=== PATIENT | male | born 1955 | race Caucasian/White ===

== ENCOUNTER → 2017-06-30 | Outpatient (CLI) | payer BC | END | disposition home or self-care (01) | LOC: YCFC.O 08:58 | PROVIDERS: ATTEND Nurse Practitioner Family | DX: R97.20 Elevated prostate specific antigen [PSA] (principal); I10 Essential (primary) hypertension; Z13.220 Encounter for screening for lipoid disorders ==

== ENCOUNTER → 2019-08-10 | Outpatient (CLI) | payer BC ==
--- NOTE | 2019-08-10 14:54 | MRI ---
EXAM DESCRIPTION: Brain w/wo contrast and brainstem/IACs with and without contrast: Magnetic Resonance Imaging. CLINICAL HISTORY: MENIERE'S DISEASE RIGHT EAR, SENSORINEURAL HEARING LOSS COMPARISON: None. TECHNIQUE: Diffusion axial imaging of the brain. Multiplanar high-field unit, multiple conventional sequences through the IACs, and the brain, before and after 5 kg/mL gadolinium IV contrast. No adverse reactions. FINDINGS: Normal signal in the IACs with no abnormal enhancement and no mass. No fluid in the mastoid air cells. Normal contour of the cerebellopontine angles with no mass, normal enhancement. Normal flow signal void in the major vessels of the [place] and venous sinuses. Right vertebral dominant. Paranasal sinuses are unremarkable.. Pituitary gland occupies all of the sella compartment. Bony calvarium is intact. Base of the cerebellar tonsils is at the level of the foramen magnum. At least 3 foci of hyperintense FLAIR and T2-weighted signal in the subcortical white matter of the left frontal lobe at and above the level of the lateral ventricle. No hemorrhage, no mass effect, and no enhancement. Normal signal in the bilateral basal ganglia. Normal signal in the brainstem and cerebellar hemispheres. . Concordance of the diffusion and non-diffusion sequences with no evidence of acute or subacute infarction. Cortical sulci, ventricles, and other CSF spaces, and the subdural spaces are normally configured for patients age..No effacement or displacement. No midline shift. No extra-axial hemorrhage. IMPRESSION: 1. Normal appearance of the IACs and brainstem without and with gadolinium IV contrast with no mass effect, no hemorrhage, and no abnormal contrast enhancement. Normal diffusion noncontrast MRI as well. 2. Small follicle lesions in the subcortical white matter of the left frontal lobe which could be related to aging or cerebral microvascular disease or migraine headaches. No hemorrhage, no mass effect, no diffusion restriction. Electronically signed by: Ben Roberts MD 08/10/2019 2:53 PM HYDROGRAPHIC ENGINEER
== END ==
LOC: MRI 08:52
PROVIDERS: ATTEND Student in an Organized Health Care Education/Training Program
DX: H81.01 Meniere's disease, right ear (principal); H90.A22 Sensorineural hearing loss, unilateral, left ear, with restricted hearing on the contralateral side; R90.82 White matter disease, unspecified

== ENCOUNTER 2020-08-19 03:41 | Emergency (ER) | payer SELFPAY ==
[2020-08-19] MEDS ORDERED: EPINEPHrine HCL AMP 1 MG/ML AMP SUBCU ONE ×2 (03:55→05:00)
[2020-08-19] MEDS ORDERED: FAMOTIDINE IV PREMIX 20 MG in PREMIX BAG 1 BAG IVPB ONE (03:55)
[2020-08-19] MEDS ORDERED: SODIUM CHLORIDE 0.9% (FLUSH) 10 ML SYG IV PRN (03:55)
[2020-08-19 04:09] VITALS: TEMP 98.2
--- NOTE | 2020-08-19 04:22 | ED.PDOC ---
History of Present Illness - General Chief Complaint: Allergic Reaction Stated Complaint: allergic reaction Time Seen by Provider: 08/19/20 03:55 Source: patient, RN notes reviewed, Vital Signs reviewed, family - daughter Exam Limitations: no limitations - History of Present Illness Initial Comments: Patient is a 65-year-old white male who presents via EMS after having an acute allergic reaction to amoxicillin. A couple of days ago, patient thought he was getting sinus infection and took an amoxicillin tablet he had. He had a mild reaction with associated swelling of his lip and tongue and itching. He thought he had eaten something it caused an allergic reaction and did not make the connection between the reaction and amoxicillin. Of note patient takes lisinopril also. This evening patient thought again he was getting a sinus infection and so took another amoxicillin tablet and within 20 minutes he had difficulty breathing swollen lips and swollen tongue and called EMS. Prior to EMSs arrival the patient took 50 mg of Benadryl p.o. EMS then provided an additional 50 mg of Benadryl IM, epinephrine subcu and had Solu-Medrol 125 mg IV. On arrival here patient states that he is feeling better. Per EMS his lip swelling has markedly reduced. Patient says that he can breathe easier and his tongue is not swollen. Timing/Duration: 1 hour Severity: severe Improving Factors: medication - Epinephrine, Benadryl and Solu-Medrol IV. Worsening Factors: medication - Amoxicillin Associated Symptoms: shortness of breath Allergies/Adverse Reactions: Allergies Amoxicillin Allergy (Verified 08/19/20 03:58) Home Medications: Ambulatory Orders Diazepam 08/19/20 Lisinopril 08/19/20 Triamterene & Hydrochlorothiaz [Triamterene/Hydrochloroth 37.5-25 mg] 1 tab PO 08/19/20 Review of Systems - Review of Systems Constitutional: States: no symptoms reported, see HPI. Denies: chills, fever, malaise, weakness EENTM: States: see HPI, throat swelling, mouth swelling - Swelling of the tongue and lips. Denies: eye pain, blurred vision, double vision Respiratory: States: see HPI, cough, short of breath, stridor, wheezing Cardiology: States: no symptoms reported. Denies: chest pain, palpitations, syncope Gastrointestinal/Abdominal: States: no symptoms reported. Denies: abdominal pain, diarrhea, nausea Genitourinary: States: no symptoms reported. Denies: dysuria, frequency Musculoskeletal: States: no symptoms reported. Denies: joint pain, joint swelling Skin: States: see HPI, change in color - Red whelps, rash Neurological: States: no symptoms reported. Denies: tingling, tremors, weakness Endocrine: States: no symptoms reported. Denies: increased hunger, increased thirst, increased urine Hematologic/Lymphatic: States: no symptoms reported. Denies: blood clots, easy bleeding All other Systems: No Change from Baseline Past Medical History (General) - Patient Medical History Hx Seizures: No Hx Stroke: No Hx Dementia: No Hx Asthma: No Hx of COPD: Yes Hx Cardiac Disorders: No Hx Congestive Heart Failure: No Hx Pacemaker: No Hx Hypertension: Yes Hx Thyroid Disease: No Hx Diabetes: Yes Hx Gastroesophageal Reflux: No Hx Renal Disease: No Hx Cancer: No Hx of HIV: No Hx Hepatitis C: No Hx MRSA: No - Vaccination History Hx Tetanus, Diphtheria Vaccination: Yes Hx Influenza Vaccination: Yes - Social History Hx Tobacco Use: Yes Hx Alcohol Use: Yes Family Medical History - Family History Daughter Family History: Unknown Living Status: Still Living Physical Exam - Physical Exam General Appearance: Alert, Anxious, Obvious distress, Ill Appearing, Restless, Unkempt, Well Developed, Well Hydrated, Well Nourished Eye Exam: bilateral normal Ears, Nose, Throat: hearing grossly normal, nasal congestion, other - Patient with mildly swollen lips and moderately enlarged tongue. 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 08/19/20 06:20 Patient was given multiple rounds of epi subcu and additionally was [facility]. Patient additionally had a total of 100 mg of Benadryl prior to arrival and 125 Solu-Medrol. Here patient was given famotidine. Patient continued to have worsening swelling of his tongue and lips. Decision was made to intubate the patient to protect the airway. Patient tolerated the procedure well and we are currently awaiting helicopter transferred to [facility] for admission. - Results/Orders Results/Orders: 08/19/20 03:55 Sodium Chloride 0.9% (Flush) [Saline Flush Syringe] 3 ml IV PRN PRN 08/19/20 05:57 ABG [Arterial Blood Gas] Stat 08/19/20 06:09 Chest,1 View [RAD] Stat Laboratory Results - last 24 hr 08/19/20 08/19/20 04:50 04:50 ESR 0 Sodium 139 Potassium 4.0 Chloride 101 Carbon Dioxide 24 Anion Gap 18.0 BUN 18 Creatinine 0.91 BUN/Creatinine Ratio 19.8 Random Glucose 136 H Serum Osmolality 281.5 Calcium 8.9 Total Bilirubin 0.6 AST 19 ALT 33 Alkaline Phosphatase 83 C-Reactive Protein 1.0 Serum Total Protein 7.1 Albumin 4.0 Globulin 3.1 Albumin/Globulin Ratio 1.3 EXAM DESCRIPTION: Chest,1 View CLINICAL HISTORY: tube placement COMPARISON: 5 6 FINDINGS: Single frontal view of the chest. Tubes and lines: Endotracheal tube with tip at the level of the regino. Consider retracting 2 to 3 cm. Leads overlie the chest. Cardiomediastinal silhouette: Heart is not enlarged. Lungs: Bilateral interstitial and groundglass opacities. Low lung volumes. No pneumothorax. Bones: Degenerative change of the spine. Upper abdomen: No acute abnormality. IMPRESSION: 1. Endotracheal tube with tip at the level of the regino. Consider retracting 2 to 3 cm. 2. Diffuse bilateral interstitial and gr oundglass opacities. These findings could be seen with bilateral pneumonic process or pulmonary edema. Electronically signed by: Tru Lennon 08/19/2020 5:56 EXAM DESCRIPTION: Chest,1 View CLINICAL HISTORY: s/p intubation, tube placement COMPARISON: 08/19/2020 FINDINGS: Single frontal view of the chest. Tubes and lines: Endotracheal tube with tip 2 cm above the regino. Leads overlie the chest. Cardiomediastinal silhouette: Stable Lungs: Stable diffuse bilateral interstitial and airspace opacities. No pneumothorax. Bones: Stable. Upper abdomen: Stable. IMPRESSION: 1. Endotracheal tube has been pulled back and is now 2 cm above the regino. Otherwise stable appearance of the chest. Electronically signed by: Tru Lennon 08/19/2020 6:40 Vital Signs 08/19/20 08/19/20 03:57 04:00 Temperature 98.2 F Pulse Rate [ 74 Left Radial] Respiratory 30 H 30 H Rate Blood Pressure 155/108 [Right Arm] O2 Sat by Pulse 94 L Oximetry - EKG/XRAY/CT CT Ordered: No CT Interpretation Call Back: No Procedures - Intubation Time of Intubation: 05:50 Intubation Method: orotracheal Tube Size (cm): 7.0 Medications: Succinylcholine Breath Sounds after Intubation: equal Intubation Complications: no complications Post Intubation Xray: Yes - Tip of the endotracheal tube is at the regino. We will back it up 2 cm. Departure - Departure Clinical Impression: Anaphylactic reaction due to adverse effect of correct drug or medicament properly administered, initial encounter, Stridor Dyspnea Qualifiers: Dyspnea type: acute respiratory distress Qualified Code(s): R06.03 - Acute respiratory distress Time of Disposition: 06:24 Disposition: Transfer to Hospital Condition: Serious Departure Forms: ED Discharge - Pt. Copy, Patient Portal Self Enrollment Instructions: DI for Allergic Rhinitis Referrals: Dewayne Edmondson MD [Primary Care Provider] - 1-2 Weeks Home Medications: Ambulatory Orders Diazepam 08/19/20 Lisinopril 08/19/20 Triamterene & Hydrochlorothiaz [Triamterene/Hydrochloroth 37.5-25 mg] 1 tab PO 08/19/20 Transfer to Outside Facility - Transfer Information Decision to Transfer Date: 08/19/20 Decision to Transfer Time: 05:30 Reason for Transfer: ICU Accepting Provider:: Dr. Brown Accepting Facility: [facility]
[2020-08-19] MEDS ORDERED: ALBUTEROL SULFATE 2.5 MG/3 ML VIAL NEB ONE (04:32)
[2020-08-19] MEDS ORDERED: EPINEPHrine HCL AMP 1 MG/ML AMP ONE (05:02)
[2020-08-19] MEDS ORDERED: RACEPINEPHRINE 2.25% 0.5 ML UD ONE (05:02)
[2020-08-19] MEDS ORDERED: SUCCINYLCHOLINE CHLORIDE 200 MG/10 ML VIAL ONE (05:04)
[2020-08-19] MEDS ORDERED: RACEPINEPHRINE 2.25% 0.5 ML UD NEB ONE (05:07)
[2020-08-19] MEDS ORDERED: SODIUM CHLORIDE 0.9% 1000ML 1,000 ML ONE (05:08)
[2020-08-19] MEDS ORDERED: VECURONIUM BROMIDE 10 MG VIAL IV ONE (05:27)
[2020-08-19] MEDS ORDERED: PROPOFOL 200 MG/20 ML VIAL IV ONE (05:30)
--- NOTE | 2020-08-19 05:57 | RAD ---
EXAM DESCRIPTION: Chest,1 View CLINICAL HISTORY: tube placement COMPARISON: 07 13 6 FINDINGS: Single frontal view of the chest. Tubes and lines: Endotracheal tube with tip at the level of the regino. Consider retracting 2 to 3 cm. Leads overlie the chest. Cardiomediastinal silhouette: Heart is not enlarged. Lungs: Bilateral interstitial and groundglass opacities. Low lung volumes. No pneumothorax. Bones: Degenerative change of the spine. Upper abdomen: No acute abnormality. IMPRESSION: 1. Endotracheal tube with tip at the level of the regino. Consider retracting 2 to 3 cm. 2. Diffuse bilateral interstitial and groundglass opacities. These findings could be seen with bilateral pneumonic process or pulmonary edema. Electronically signed by: Tru Lennon 08/19/2020 5:56 AM QUALITY CONTROL LEAD
[2020-08-19] MEDS ORDERED: MIDAZOLAM HCL 10 MG/10 ML INJ IV ONE (06:30)
[2020-08-19] MEDS ORDERED: ETOMIDATE INJECTION 2 MG/ML 20ML VIAL IV ONE (06:30)
--- NOTE | 2020-08-19 06:42 | RAD ---
EXAM DESCRIPTION: Chest,1 View CLINICAL HISTORY: s/p intubation, tube placement COMPARISON: 08/19/2020 FINDINGS: Single frontal view of the chest. Tubes and lines: Endotracheal tube with tip 2 cm above the regino. Leads overlie the chest. Cardiomediastinal silhouette: Stable Lungs: Stable diffuse bilateral interstitial and airspace opacities. No pneumothorax. Bones: Stable. Upper abdomen: Stable. IMPRESSION: 1. Endotracheal tube has been pulled back and is now 2 cm above the regino. Otherwise stable appearance of the chest. Electronically signed by: Tru Lennon 08/19/2020 6:40 AM [employer]IT GOODS MENDER
[2020-08-19 07:14] VITALS: BP 170/86; O2SAT 95
== END 2020-08-19 07:10 | disposition short-term general hospital (02) ==
LOC: ER 03:41
DX: T88.6XXA Anaphylactic reaction due to adverse effect of correct drug or medicament properly administered, initial encounter (principal); T36.0X5A Adverse effect of penicillins, initial encounter; R06.1 Stridor; R06.03 Acute respiratory distress; D72.12 Drug rash with eosinophilia and systemic symptoms syndrome; J44.9 Chronic obstructive pulmonary disease, unspecified; I10 Essential (primary) hypertension; E11.9 Type 2 diabetes mellitus without complications; Z20.828 Contact with and (suspected) exposure to other viral communicable diseases; Z88.1 Allergy status to other antibiotic agents; Z79.899 Other long term (current) drug therapy; Z87.891 Personal history of nicotine dependence
CPT/HCPCS: 31500; 36600; 71045; 80048; 80053; 82803; 82805; 85651; 86140; 87635; 94002; 94640; 94770; J0330; J3490; J7030; J7611